=== PATIENT | female | born 1965 | race Caucasian/White ===

== ENCOUNTER 2016-11-16 04:08 | Emergency (ER) | payer BC ==
[~2016-11-16] VITALS: Ht 170.2 cm; Wt 79.4 kg
[~2016-11-16 04:08] MED LIST: MACROBID 1100 MG/CAP PO; PREDNISONE20 MG PO
[2016-11-16 04:11] VITALS: TEMP 98.4
[2016-11-16] MEDS ORDERED: MEDROL 4MG DOSPA4 MG PO (05:04)
[2016-11-16 05:18] VITALS: BP 132/84; PULSE 91
== END 2016-11-16 05:19 | disposition home or self-care (01) ==
LOC: COL.ER 04:08
DX: M77.51 Other enthesopathy of right foot and ankle (principal)
CPT/HCPCS: J7512

== ENCOUNTER 2020-02-24 17:12 | Emergency (ER) | payer SELFPAY ==
[~2020-02-24] VITALS: Ht 170.2 cm; Wt 81.8 kg
[~2020-02-24 17:12] MED LIST changes: +MEDROL 4MG DOSPA4 MG PO
[2020-02-24 17:48] VITALS: TEMP 98.2
[2020-02-24] MEDS ORDERED: NORCO 325 MG-51 TAB PO (20:20)
[2020-02-24 20:46] VITALS: BP 134/75; PULSE 75
== END 2020-02-24 20:47 | disposition home or self-care (01) ==
LOC: COL.ER 17:12
DX: H61.22 Impacted cerumen, left ear (principal); H60.92 Unspecified otitis externa, left ear; F17.210 Nicotine dependence, cigarettes, uncomplicated

== ENCOUNTER 2020-12-22 00:11 | Emergency (ER) | payer SELFPAY ==
[~2020-12-22] VITALS: Ht 170.2 cm; Wt 77.3 kg
[~2020-12-22 00:11] MED LIST changes: +NORCO 325 MG-51 TAB PO
[2020-12-22 01:50] VITALS: BP 94/47; PULSE 72; TEMP 98.3
== END 2020-12-22 01:50 | disposition home or self-care (01) ==
LOC: COL.ER 00:11
DX: S40.262A Insect bite (nonvenomous) of left shoulder, initial encounter (principal); Z88.1 Allergy status to other antibiotic agents; X58.XXXA Exposure to other specified factors, initial encounter